=== PATIENT | female | born 1955 | race Caucasian/White ===

== ENCOUNTER 2024-01-06 10:42 | Outpatient (CLI) | payer BC, MEDICARE, SELFPAY ==
[2024-01-06 11:44] LABS: Albumin Level 3.8 g/dL (3.5-5.2); Alkaline Phosphatase 246 U/L (35-105); Blood Urea Nitrogen 19 mg/dL (8-23); Carbon Dioxide 22 mmol/L (22-29); Chloride 102 mmol/L (98-107); Globulin 3.3 g/dL (1.3-4.6); Glomerular Filtration Rate 54.8 mL/min (90-130); Glucose 278 mg/dL (65-115); Osmolality Calculated 288 mOsm/kg (285-295); Sodium 133 mmol/L (136-145); Total Bilirubin 0.2 mg/dL (0.15-1.2); Total Protein 7.1 g/dL (6.6-8.7)
[2024-01-06 11:50] LABS: Anion Gap 13.6 (5-19); Aspartate Amino Transferase 69 U/L (0-32); Potassium 4.6 mmol/L (3.5-5.1)
[2024-01-06 11:51] LABS: Alanine Aminotransferase 45 U/L (0-33)
[2024-01-07 10:29] LABS: C-Peptide <0.10 ng/mL (0.80-3.85)
== END 2024-01-06 10:43 | disposition home or self-care (01) ==
LOC: LAB 10:43
PROVIDERS: PCP Family Medicine; Visit Provider Internal Medicine
DX: E11.9 Type 2 diabetes mellitus without complications (principal)
CPT/HCPCS: 80053; 84681; 86337; 86341